=== PATIENT | male | born 1980 | race Caucasian/White ===

== ENCOUNTER 2017-09-05 05:18 | Emergency (ER) | payer SELFPAY ==
[2017-09-05] MEDS: LIDOCAINE 2%/EPI MPF (SDV) 20 ML VIAL INJ (06:13)
== END 2017-09-05 07:32 | disposition home or self-care (01) ==
LOC: E/R 05:18
DX: S01.81XA Laceration without foreign body of other part of head, initial encounter (principal); F10.920 Alcohol use, unspecified with intoxication, uncomplicated; S09.90XA Unspecified injury of head, initial encounter; F17.210 Nicotine dependence, cigarettes, uncomplicated; R40.2142 Coma scale, eyes open, spontaneous, at arrival to emergency department; R40.2252 Coma scale, best verbal response, oriented, at arrival to emergency department; R40.2362 Coma scale, best motor response, obeys commands, at arrival to emergency department; W01.198A Fall on same level from slipping, tripping and stumbling with subsequent striking against other object, initial encounter; Y92.9 Unspecified place or not applicable
CPT/HCPCS: 12013; 70450; 99284-25

== ENCOUNTER 2017-09-11 09:35 | Emergency (ER) | payer SELFPAY | END 2017-09-11 11:03 | disposition left against medical advice (07) | LOC: FTE 11:03 | DX: Z48.02 Encounter for removal of sutures (principal) | CPT/HCPCS: 99281 ==